=== PATIENT | female | born 1950 | race Caucasian/White ===

== ENCOUNTER → 2016-06-09 | Outpatient (CLI) | payer OTHER, MEDICARE | LOC: FIMAGING 12:43 | PROVIDERS: ATTEND Orthopaedic Surgery | DX: S46.911A Strain of unspecified muscle, fascia and tendon at shoulder and upper arm level, right arm, initial encounter (principal); S46.111A Strain of muscle, fascia and tendon of long head of biceps, right arm, initial encounter; M75.91 Shoulder lesion, unspecified, right shoulder; M75.01 Adhesive capsulitis of right shoulder ==